=== PATIENT | female | born 1940 | race Caucasian/White ===

== ENCOUNTER 2017-04-19 15:49 | Emergency (ER) | payer MEDICARE ==
[~2017-04-19 15:49] MED LIST: ALEN70TA47 PO; ASCO10007 PO; CHOL100046 PO; CYAN1000I IM; FERR159T2 PO; FOLI20CA PO; HYDR-4060 PO; LEVO50TA11 PO; LISI40TA4 PO; MVIT PO; PRAM1.5T7 PO; RANI150T7 PO; TOPI50TA24 PO; TRAZ150T79 PO; VELAFAXINE PO
[2017-04-19] MEDS ORDERED: ACETAMINOPHEN 325 MG TAB ONE (16:09)
[2017-04-19] MEDS ORDERED: TRAMADOL HCL 50 MG TABLET ONE (16:11)
== END 2017-04-19 17:21 | disposition home or self-care (01) ==
LOC: EDH 15:49
DX: S63.502A Unspecified sprain of left wrist, initial encounter (principal); R07.89 Other chest pain; M06.9 Rheumatoid arthritis, unspecified; I10 Essential (primary) hypertension; Z88.0 Allergy status to penicillin; Z88.2 Allergy status to sulfonamides; Z88.6 Allergy status to analgesic agent; Z98.890 Other specified postprocedural states; W01.198A Fall on same level from slipping, tripping and stumbling with subsequent striking against other object, initial encounter; Y93.89 Activity, other specified; Y92.89 Other specified places as the place of occurrence of the external cause; Y99.8 Other external cause status
CPT/HCPCS: 29125; 71046; 73110; 73130

== ENCOUNTER → 2018-06-16 | Outpatient (CLI) | payer MEDICARE ==
[~2018-06-16] MED LIST changes: +ALEN70TA10 PO; -ALEN70TA47 PO
== END | disposition home or self-care (01) ==
LOC: RAH 13:26
PROVIDERS: ATTEND Orthopaedic Surgery Orthopaedic Trauma
DX: S42.351D Displaced comminuted fracture of shaft of humerus, right arm, subsequent encounter for fracture with routine healing (principal); S42.411D Displaced simple supracondylar fracture without intercondylar fracture of right humerus, subsequent encounter for fracture with routine healing; X58.XXXD Exposure to other specified factors, subsequent encounter
CPT/HCPCS: 73200